=== PATIENT | male | born 2000 | race African-American/Black ===

== ENCOUNTER 2022-09-18 14:41 | Emergency (ER) | payer MEDICAID ==
[~2022-09-18] VITALS: Ht 175.3 cm; Wt 59.0 kg
[2022-09-18 14:48] VITALS: BP 117/76
== END 2022-09-18 18:31 | disposition left against medical advice (07) ==
LOC: ER 14:41
DX: Z53.21 Procedure and treatment not carried out due to patient leaving prior to being seen by health care provider (principal)